=== PATIENT | female | born 2000 | race Caucasian/White ===

== ENCOUNTER → 2022-08-25 08:52 | Outpatient (BNVA) | payer BC, SELFPAY | PROVIDERS: Visit Provider Urology | DX: Z13.89 Encounter for screening for other disorder (principal) ==

== ENCOUNTER 2022-09-10 10:07 | Outpatient (REF) | payer BC, SELFPAY ==
--- NOTE | ~2022-09-10 | US_ITS ---
EXAMINATION: US RETROPERITONEAL COMPLETE (RENAL) CLINICAL INFORMATION: Urinary tract infection, site not specified. COMPARISON: None available. TECHNIQUE: Real-time imaging of the kidneys and bladder. FINDINGS: RIGHT KIDNEY: 11.1 x 4.2 x 5.3 cm (SAG x AP x TRV). The kidney is normal in size, contour, and echogenicity. Renal cortical thickness is normal. No calculi or focal parenchymal lesions. No hydronephrosis. LEFT KIDNEY: 11.0 x 5.6 x 5.3 cm (SAG x AP x TRV). The kidney is normal in size, contour, and echogenicity. Renal cortical thickness is normal. No calculi or focal parenchymal lesions. No hydronephrosis. BLADDER: Well distended and normal. Bilateral ureteral jets are demonstrated. Prevoid bladder volume is 449.6 mL. Postvoid bladder volume is 6.6 mL. US/US retroperitoneal comp IMPRESSION: Unremarkable renal ultrasound. Tiny postvoid residual bladder volume. Normal bilateral ureteral jets.
== END 2022-09-10 10:08 | disposition home or self-care (01) ==
LOC: HO.US 10:07
PROVIDERS: Visit Provider Urology
DX: N39.0 Urinary tract infection, site not specified (principal)
CPT/HCPCS: 76770

== ENCOUNTER 2022-10-07 08:06 | Day surgery (SDC) | payer BC, SELFPAY ==
--- NOTE | 2022-10-06 10:42 | P.CONAN_ITS ---
Documented by User: Ibis Pantoja NP 10/06/22 10:42 HPI - Anesthesia Eval Consult details Narrative: 22yo F for Cystoscopy Hydrodistention of Bladder PMFSH Active Problems Active Problems: All Active Problems (Updated 08/25/22 @ 10:07 by Emily Somers) Sensation of pressure in bladder area (Acute) Urinary urgency (Acute) Recurrent UTI (Acute) Past Medical History Medical History Anxiety Dysuria Social History Social History Patient Tobacco Use Status: Former Tobacco user Are you DNR?: No Advance Directives: No Advance Directives Information Provided: Yes Meds Allergies Allergy/AdvReac Type Severity Reaction Status Date / Time No Known Allergies Allergy Verified 10/02/22 16:08 Home Medications Medication Instructions Recorded Confirmed Last Taken Type levonorgestrel-ethinyl estradiol 1 tab PO DIRECTED 07/08/22 10/02/22 Unknown History 0.1 mg-20 mcg tablet (Sronyx) Exam Exam Date and Time: October 06, 2022 104 Assessment and Plan Assessment Anesthesia Assessment: Chart Reviewed Documented by User: Cornelius Palma MD 10/07/22 12:46 PMFSH Past Medical History Medical History Anxiety Dysuria Family History Family history of problems with anesthesia: No Surgical History History of Problems with Anesthesia: No Social History Social History Patient Tobacco Use Status: Former Tobacco user Are you DNR?: No Advance Directives: No Advance Directives Information Provided: Yes Meds Allergies Allergy/AdvReac Type Severity Reaction Status Date / Time No Known Allergies Allergy Verified 10/02/22 16:08 Home Medications Medication Instructions Recorded Confirmed Last Taken Type levonorgestrel-ethinyl estradiol 1 tab PO DIRECTED 07/08/22 10/02/22 Unknown History 0.1 mg-20 mcg tablet (Sronyx) Exam Airway Mallampati Class: II TM Dist: >3cm Neck ROM: Full Loose/Missing/Broken Teeth: No Heart: [id number] Lungs: cta b/l Assessment and Plan Assessment Anesthesia Assessment: Anesthesia Plan Discussed Final Anesthetic Review Family History of Problems with Anesthesia: No History of Problems with Anesthesia: No NPO: Yes ASA Class: I Final Preanesthetic Review: No Changes in Pt Med Stat, Meds/Allgs Chart Revie wed, Consent Obtained/Reviewed and Anes Risks/Benef Reviewed Patient Risk: Low Procedure Risk: Low Assessment/Block/Sedation in SS: Assess/Block/Sedation-SS Anesthetic Plan Anesthetic Plan: GA, MAC: and Agree w/ Assess. and Plan Disposition: Standard PACU
[2022-10-07 08:17] VITALS: BMI 27.6
[2022-10-07 08:24] LABS: UPreg QC Valid YES; Urine Pregnancy NEGATIVE (NEGATIVE)
[2022-10-07 08:32] VITALS: BP 105/63; PULSE 68; RESP 18; TEMP 36.8; O2SAT 100
[2022-10-07] MEDS: Lactated Ringers 1,000 ML 100 ML IVCONT (09:23)
--- NOTE | 2022-10-07 12:57 | MHC.SHP ---
Pre-Procedural Eval Section A Date of Service: 10/07/22 The patient is an INPATIENT: No The History & Physical has been completed within 30 days and I have reviewed it.: No Section B Chief Complaint: Other symptoms and signs involving the genitourina Details of Present Illness: Swapna is a 22-year-old female who has had recurrent UTI's and urinary symptoms of dysuria and bladder pressure. Relevant Family History (Specify if Yes): No Relevant Social History: None Present Medications: see Short Stay Collaborative assessment Allergies: Allergies Allergy/AdvReac Type Severity Reaction Status Date / Time No Known Allergies Allergy Verified 10/02/22 16:08 Review of Systems Review of Systems Comment: 10 point ROS negative other than stated in HPI Exam Surgical H&P Exam: Normal: HEENT, Normal: Heart, Normal: Lungs, Normal: Skin and Normal: Neurological Plan Diagnosis/Plan: Unchanged (Recurrent UTI's, Urinary Urgency Bladder pressure) I have reviewed the history and physical and performed a pertinent physical examination on my patient. No changes have occurred unless specified. Cystoscopy. Discussed risks to include but not limited to, blood in the urine, burning with urination, urgency. Time Spent With Patient Time: Total time managing care of this patient today ____ minutes.
--- NOTE | 2022-10-07 13:43 | W.PM.OPN ---
Operative Note Operative Note Date of Service: 10/07/22 Narrative: PREOP DIAGNOSIS: Recurrent UTI's, LUTS-Bladder pressure POSTOP DIAGNOSIS: Recurrent UTI's, LUTS-Bladder pressure PROCEDURE: CYSTOSCOPY HYDRODISTENTION BLADDER INSTILLATION Anethesia: General Surgeon: Dr. Brooks Monsivais Indications: The patient has lower urinary symptoms, bladder pressure, h/o recurrent UTI's Details of procedure: The patient was brought into the operating room placed on the OR table in supine position. 2 g of Ancef IV. General anesthesia was administered. The patient was repositioned into lithotomy position, prepped and draped in the usual sterile fashion. Time-out was done per protocol. A 22 fr cystoscope was placed transurethrally into the bladder. Urine was drained from the bladder measuring 75 mL. Urine sent for c/s. The right and left ureteral orifices were visualized. The entire bladder was visualized. There were no suspicious bladder lesions seen. There were mild trabeculations noted. The bladder was filled with sterile water at 80 cm of water pressure under gravity. The bladder was distended for 2 minutes. Bladder capacity measured 900 mL. Revisualization of the bladder, noted minimal glomerulations. No Louis ulcerations. The bladder was refilled with sterile water again at 80 cm of water pressure under gravity. The bladder was distended for 2 minutes. The fluid was drained from the bladder and measured 900 mL. The cystoscope was removed. 2% lidocaine urojet was passed transurethrally, Solution of (1% lidocaine plain, 15 mL, 0.5 % Marcaine 15 mL mixed with 30, 000 units of heparin concentration 5000 units per mL total of 6 mL hepaine) instilled transurethrally into the bladder. The patient was brought out of anesthesia and taken to recovery in stable condition. Complications: None Drains: none
[2022-10-07 13:45] VITALS: BP 90/48; PULSE 65; RESP 20; TEMP 36.1; O2SAT 99
[2022-10-07] MEDS: Acetaminophen 325 MG TABLET 650 MG PO (13:56)
[2022-10-07] MEDS: Phenazopyridine HCL 200 MG TABLET PO (13:57)
[2022-10-07 14:01] VITALS: BP 105/58; PULSE 65; RESP 16; TEMP 36.1; O2SAT 100
== END 2022-10-07 14:40 | disposition home or self-care (01) ==
PROVIDERS: Nurse Practitioner; Visit Provider Urology
PROC: 0T7B7ZZ Dilation of Bladder, Via Natural or Artificial Opening (ICD-10-PCS; CPT 52000; principal; 2022-10-07 09:50)
DX: R39.89 Other symptoms and signs involving the genitourinary system (principal); Z87.440 Personal history of urinary (tract) infections; R30.0 Dysuria; R39.15 Urgency of urination; F41.1 Generalized anxiety disorder; Z79.899 Other long term (current) drug therapy
CPT/HCPCS: 52000; 51700; 81025; 87086; J0690; J1643; J2250; J2405; J2795; J3010

== ENCOUNTER → 2022-10-30 15:26 | Outpatient (BNVA) | payer BC, SELFPAY | PROVIDERS: Visit Provider Urology ==

== ENCOUNTER 2023-09-04 13:12 | Outpatient (AMB) | payer BC, SELFPAY ==
--- NOTE | 2023-09-04 13:23 | A.OFFVIS_ITS ---
Intake Visit Reasons: 9m follow up Intake Note: Patient is Present for Follow Up Recurrent UTI Urology Medication: Antibiotics as needed Antibiotic Allergies: None Blood Thinners:None Patient was unable to provide a urine sample. states she has not had a recent UTI infection or any symptoms since her last visit with Dr Escobedo Allergies No Known Allergies Allergy (Verified 09/04/23 13:33) HPI Comments Details: Swapna is a very pleasant female. She is seen for the following urologic conditions - recurrent urinary tract infection Recurrent urinary tract infection Correlated with coital activity Has done well using Macrobid 100 mg if needed Understands of has UTI symptoms may use Macrobid twice a day for 3 days and call the office Moving to [place] 10/30/22-- The patient states that she has not had any irritative voiding symptoms since her last visit in August. I discussed that cystoscopy finding were within normal limits. --08/25/22--she was seen as a new patient evaluation for recurrent UTI and increased urgency The patient reports having first episode of UTI in July,. On 06-15-22 the patient visited [facility] for complaint of urinary symptoms of dysuria, increased urgency and frequency and had positive culture for E.coli. She is sexually active and uses control. I want her to continue Macrobid 100mg post intercourse. Also discussed that if she develops UTI symptoms she may used the macrobid bid for 3 days, but to call office if this is a reocurring issue. She states she has had yeast infection in the past after taking using antibiotic. I will send Diflucan that she can use PRN if she develops yeast infection. Evaluation today UA: Blood: negative, leukocytes: negative. [facility] Medical History Anxiety Dysuria Social History Patient Tobacco Use Status: Former Tobacco user Review of Systems Const Denies chills and Denies fever(s) Card Reports no additional complaints and Denies syncope Resp Denies cough GI Denies abdominal pain and Denies heartburn Reports as per HPI and Denies change in libido Neuro Denies syncope Psych Denies change in libido Endo Denies change in libido Physical Exam Const General: cooperative, healthy appearing, comfortable and no acute distress Orientation/consciousness: patient oriented x3 HEENT Face and sinus: Yes normal facial exam Mouth: moist mucous membranes Neck Neck: Yes normal visual inspection, Yes full ROM and Yes trachea midline Chest Chest palpation & inspection: normal inspection of the chest Resp Effort & Inspection: normal respiratory effort, able to speak in complete sentences and no respiratory distress GI Inspection: Yes normal to inspection Back/Spine/Pelvis Cervical Spine: normal cervical lordosis Thoracic/Lumbar Spine: thoracic and lumbar spine normal to inspection Skin General skin exam: no rashes or lesions noted Neuro General: patient oriented x3, gait normal, tone normal and moves all extremities Extrem General: Yes normal to inspection and Yes capillary refill normal Assessment & Plan Assessment & Plan (1) Frequency of urination: Code(s): R35.0 - Frequency of micturition Category: Medical (2) Recurrent UTI: Code(s): N39.0 - Urinary tract infection, site not specified Category: Medical Plan P.r.n. follow-up Patient Instructions: Imaging studies, laboratory and physical exam results were discussed and reviewed in detail. No major barriers to patient understanding were identified. An opportunity to ask questions regarding the treatment plan was provided. All questions were answered. The patient expressed understanding and agreement with the above treatment plan. The patient is aware they should contact our office by phone for worsening of their current condition or the appearance of new urologic symptoms. Compliance is encouraged with any medications and followup testing that is ordered. It is a privilege to participate in the urologic care of your patient. If you have any questions or concerns regarding treatment for the above conditions, or other urologic issues, please do not hesitate to contact me. The office telephone contact is [phone]. This note is constructed using voice recognition software. While every effort has been made to ensure accuracy patrol deputy sheriff errors may have been included. Yours sincerely, Dr Morgan Baez MD, [facility] - Urology Providers of Expert, Compassionate Care for the Genitourinary System Coding Level of Care Code Est Pt Level 3 (78227) Diagnoses Frequency of urination R35.0 Recurrent UTI N39.0
== END 2023-09-04 14:06 | disposition home or self-care (01) ==
PROVIDERS: Visit Provider Urology
DX: R35.0 Frequency of micturition (principal); N39.0 Urinary tract infection, site not specified
CPT/HCPCS: 99213

== ENCOUNTER → 2023-09-04 13:12 | Outpatient (BNVA) | payer BC, SELFPAY | PROVIDERS: Visit Provider Urology ==